=== PATIENT | male | born 1955 | race Two or more races ===

== ENCOUNTER 2020-07-04 09:24 | Outpatient (CLI) | payer OTHER | END 2020-07-04 16:44 | disposition home or self-care (01) | LOC: OFIC 805 09:24 | PROVIDERS: ATTEND Otolaryngology | DX: H93.8X2 Other specified disorders of left ear (principal); H90.A21 Sensorineural hearing loss, unilateral, right ear, with restricted hearing on the contralateral side; H61.23 Impacted cerumen, bilateral ==

== ENCOUNTER 2020-10-11 13:19 | Outpatient (CLI) | payer OTHER | END 2020-10-11 13:30 | disposition home or self-care (01) | LOC: OFIC 805 13:19 | PROVIDERS: ATTEND Otolaryngology | DX: H93.8X1 Other specified disorders of right ear (principal); H90.3 Sensorineural hearing loss, bilateral ==